=== PATIENT | male | born 1950 | race African-American/Black ===

== ENCOUNTER 2018-05-09 23:18 | Emergency (ER) | payer OTHER ==
[~2018-05-09] VITALS: Ht 172.7 cm; Wt 82.0 kg
[2018-05-10] MEDS ORDERED: TETANUS, DIPHTHERIA, PERTUSSIS VAC/PF 0.5ML (>7YR OLD) IM ONE (00:15)
[2018-05-10 01:06] LABS: CHLORIDE 110 mEq/L (98-107)
[2018-05-10 01:16] LABS: EOSINOPHILS % 1.6 % (0.0-5.0); HEMATOCRIT. 40.5 % (42.0-52.0); LYMPHOCYTES % 14.9 % (20.0-50.0); MEAN CORPUSCULAR HEMOGLOBIN 24.6 pg (28.0-32.0); MONOCYTES % 6.2 % (2.0-8.0); NEUTROPHILS % 76.3 % (40.0-76.0); PLATELET 240 x1000/uL (130-400); RED BLOOD CELL COUNT 5.26 mill/uL (4.7-6.1); RED CELL DISTRIBUTION WIDTH 19.4 % (11.6-14.6)
[2018-05-10] MEDS ORDERED: FUROSEMIDE 100MG/10ML VIAL IVP ONE (02:00)
[2018-05-10 03:36] VITALS: BP 141/103
== END 2018-05-10 03:45 | disposition home or self-care (01) ==
LOC: ER 23:18
DX: I11.0 Hypertensive heart disease with heart failure (principal); I50.9 Heart failure, unspecified; Z91.14 Patient's other noncompliance with medication regimen; R55 Syncope and collapse; S00.81XA Abrasion of other part of head, initial encounter; W01.198A Fall on same level from slipping, tripping and stumbling with subsequent striking against other object, initial encounter; Y93.89 Activity, other specified; Y92.012 Bathroom of single-family (private) house as the place of occurrence of the external cause; F10.20 Alcohol dependence, uncomplicated; Y90.9 Presence of alcohol in blood, level not specified; F12.90 Cannabis use, unspecified, uncomplicated; F17.210 Nicotine dependence, cigarettes, uncomplicated
CPT/HCPCS: 36415; 70450; 71045; 80053; 82962; 85025; 90471; 90715; 93005; 96374; 99285; J1940

== ENCOUNTER 2018-06-01 22:25 | Inpatient (IN) | payer MEDICARE, OTHER ==
[~2018-06-01] VITALS: Ht 175.3 cm; Wt 88.5 kg
[2018-06-02 00:51] LABS: BASOPHILS % 0.9 % (0.0-2.0); EOSINOPHILS % 0.8 % (0.0-5.0); HEMATOCRIT. 40.2 % (42.0-52.0); HEMOGLOBIN. 12.6 g/dL (14.0-18.0); LYMPHOCYTES % 18.2 % (20.0-50.0); MEAN CORPUSCULAR HEMOGLOBIN 24.2 pg (28.0-32.0); MEAN CORPUSCULAR VOLUME 77.2 fL (80.0-94.0); MEAN PLATELET VOLUME 8.4 fl (7.4-10.4); MONOCYTES % 10.9 % (2.0-8.0); NEUTROPHILS % 69.2 % (40.0-76.0); PLATELET 227 x1000/uL (130-400); RED BLOOD CELL COUNT 5.21 mill/uL (4.7-6.1); RED CELL DISTRIBUTION WIDTH 18.7 % (11.6-14.6)
[2018-06-02 01:01] LABS: BG BASE EXCESS -2.6 mmol/L (-2.0-2.0); BG CARBOXYHEMOGLOBIN 1.2 % (0.5-1.5); BG DEOXYHEMOGLOBIN 2.7 % (0.0-5.0); BG FRACTION INSPIRED OXYGEN 28; BG HCO3 ACT 20.3 mmol/L (22.0-26.0); BG METHEMOGLOBIN 0.3 % (0.0-1.5); BG OXYGEN SATURATION 97.3 % (92.0-98.5); BG OXYHEMOGLOBIN 95.8 % (94.0-97.0); BG PCO2 29.7 mmHg (35.0-45.0); BG PH 7.452 (7.350-7.450); BG PO2 97.6 mmHg (75.0-100.0); BG SAMPLE SITE LEFT BRACHIAL; BG TOTAL HEMOGLOBIN 12.6 g/dL (12.0-18.0); BG VENT MODE NASAL CANNULA
[2018-06-02 01:02] LABS: CHLORIDE 112 mEq/L (98-107)
[2018-06-02 01:06] LABS: ETHANOL BLOOD < 10 mg/dL
[2018-06-02] MEDS ORDERED: FUROSEMIDE 20MG/2ML VIAL IVP ONE (02:00)
[2018-06-02] MEDS ORDERED: SODIUM POLYSTYRENE SULFONATE 15 G/60 ML BOT PO ONE (02:00)
[2018-06-02 06:11] LABS: CLARITY URINE CLEAR (CLEAR); COLOR URINE YELLOW (YELLOW); KETONES URINE NEGATIVE (NEGATIVE); LEUKOCYTE ESTERASE URINE NEGATIVE (NEGATIVE); NITRITE URINE NEGATIVE (NEGATIVE); OCCULT BLOOD URINE NEGATIVE (NEGATIVE); PH URINE 5.5 (4.5-8.0); PROTEIN URINE NEGATIVE (NEGATIVE); SPECIFIC GRAVITY URINE 1.011 (1.005-1.030); UROBILINOGEN URINE 0.2 E.U./dL (0.2-1.0)
[2018-06-02 06:41] LABS: *AMPHETAMINES SCREEN URINE NEGATIVE (NEGATIVE); *BARBITURATES SCREEN URINE NEGATIVE (NEGATIVE)
[2018-06-02 06:42] LABS: *BENZODIAZEPINES SCREEN URINE NEGATIVE (NEGATIVE); *COCAINE SCREEN URINE NEGATIVE (NEGATIVE); CANNABINOID URINE SCREEN NEGATIVE (NEGATIVE); METHADONE URINE SCREEN NEGATIVE (NEGATIVE); OPIATES URINE SCREEN NEGATIVE (NEGATIVE); PHENCYCLIDINE URINE SCREEN NEGATIVE (NEGATIVE)
[2018-06-02] MEDS ORDERED: FUROSEMIDE 20MG/2ML VIAL IV NR (06:50)
[2018-06-02] MEDS ORDERED: ACETAMINOPHEN 650MG SUPP PR PRN (08:30)
[2018-06-02 09:19] LABS: BASOPHILS % 0.7 % (0.0-2.0); EOSINOPHILS % 1.1 % (0.0-5.0); HEMATOCRIT. 41.2 % (42.0-52.0); LYMPHOCYTES % 15.6 % (20.0-50.0); MEAN CORPUSCULAR HEMOGLOBIN 24.3 pg (28.0-32.0); MEAN CORPUSCULAR VOLUME 77.2 fL (80.0-94.0); MONOCYTES % 9.4 % (2.0-8.0); NEUTROPHILS % 73.2 % (40.0-76.0); PLATELET 215 x1000/uL (130-400); RED BLOOD CELL COUNT 5.34 mill/uL (4.7-6.1); RED CELL DISTRIBUTION WIDTH 18.2 % (11.6-14.6)
[2018-06-02 09:25] LABS: CHLORIDE 109 mEq/L (98-107)
[2018-06-02 11:00] VITALS: BP 136/103
[2018-06-02] MEDS ORDERED: ALBUMIN HUMAN 12.5GM/50ML (25%) IV NR (11:30)
[2018-06-02] MEDS: SPIRONOLACTONE 25MG TABLET PO SCH (14:00)
[2018-06-02] MEDS ORDERED: SPIRONOLACTONE 50MG TABLET PO SCH (14:00)
[2018-06-02 14:03] LABS: INR 1.2; PROTHROMBIN TIME 12.5 sec (9.1-11.1)
[2018-06-02] MEDS ORDERED: LIDOCAINE HCL 1% 20ML VIAL (Pyxis) INJ ONE (14:57)
[2018-06-02] MEDS ORDERED: SODIUM BICARBONATE 4% (2.4MEQ) 5ML VIAL IV ONE (14:57)
[2018-06-02 15:30] VITALS: BP 135/112
[2018-06-02] MEDS ORDERED: ONDANSETRON HCL 4MG TABLET PO PRN (16:45)
[2018-06-02] MEDS: FUROSEMIDE 40MG/4ML VIAL IV SCH (16:56)
[2018-06-02] MEDS: NICOTINE 14MG PATCH TD SCH (16:56)
[2018-06-02 18:00] VITALS: BP 129/93
[2018-06-02] MEDS: LOSARTAN POTASSIUM 50 MG TABLET PO SCH (18:05)
[2018-06-02] MEDS: HYDRALAZINE HCL 10MG TABLET PO SCH ×2 (18:06→21:20)
[2018-06-02 20:00] VITALS: BP 108/80
[2018-06-02] MEDS ORDERED: HYDROCODONE/ACETAMINOPHEN 5/325MG TABLET PO PRN (20:30)
[2018-06-02] MEDS: CARVEDILOL 3.125 MG TABLET PO SCH (21:20)
[2018-06-03] MEDS: HYDRALAZINE HCL 10MG TABLET PO SCH ×3 (06:07→21:19)
[2018-06-03] MEDS: FUROSEMIDE 40MG/4ML VIAL IV SCH ×3 (06:07→18:16)
[2018-06-03 07:45] VITALS: BP 128/73
[2018-06-03] MEDS: NICOTINE 14MG PATCH TD SCH (08:44)
[2018-06-03] MEDS: SPIRONOLACTONE 25MG TABLET PO SCH (08:44)
[2018-06-03] MEDS: LOSARTAN POTASSIUM 50 MG TABLET PO SCH (08:44)
[2018-06-03] MEDS: CARVEDILOL 3.125 MG TABLET PO SCH ×2 (08:44→21:00)
[2018-06-03] MEDS ORDERED: FUROSEMIDE 40MG/4ML VIAL IV SCH (09:00)
[2018-06-03 12:00] VITALS: BP 135/52
[2018-06-03 16:00] VITALS: BP 142/52
[2018-06-03] MEDS: LACTULOSE 20G/30ML UDC PO SCH (18:16)
[2018-06-03 18:22] LABS: BASOPHILS % 0.5 % (0.0-2.0); EOSINOPHILS % 1.4 % (0.0-5.0); HEMATOCRIT. 38.4 % (42.0-52.0); HEMOGLOBIN. 11.9 g/dL (14.0-18.0); LYMPHOCYTES % 11.9 % (20.0-50.0); MEAN CORPUSCULAR HEMOGLOBIN 23.8 pg (28.0-32.0); MEAN CORPUSCULAR VOLUME 76.8 fL (80.0-94.0); MEAN PLATELET VOLUME 8.2 fl (7.4-10.4); MONOCYTES % 8.6 % (2.0-8.0); NEUTROPHILS % 77.6 % (40.0-76.0); PLATELET 210 x1000/uL (130-400); RED CELL DISTRIBUTION WIDTH 18.2 % (11.6-14.6)
[2018-06-03 18:39] LABS: CHLORIDE 105 mEq/L (98-107)
[2018-06-03 19:31] LABS: HEPATITIS B SURFACE ANTIGEN NEGATIVE
[2018-06-03 20:00] VITALS: BP 131/71
[2018-06-03 20:01] LABS: HEPATITIS A AB IGM NEGATIVE (NEGATIVE)
[2018-06-04] VITALS: BP 111/78
[2018-06-04] MEDS: IPRATROPIUM/ALBUTEROL 0.5-3(2.5)MG/3ML NEB HHN PRN ×4 (00:20→21:15)
[2018-06-04] MEDS: BUDESONIDE 0.5MG/2ML NEB HHN SCH ×5 (00:20→21:01)
[2018-06-04 04:00] VITALS: BP 121/81
[2018-06-04] MEDS: HYDRALAZINE HCL 10MG TABLET PO SCH ×2 (05:14→21:45)
[2018-06-04 08:00] VITALS: BP 100/60
[2018-06-04 08:15] LABS: CHLORIDE 107 mEq/L (98-107)
[2018-06-04] MEDS: SPIRONOLACTONE 25MG TABLET PO SCH (09:00)
[2018-06-04] MEDS: LOSARTAN POTASSIUM 50 MG TABLET PO SCH (09:00)
[2018-06-04] MEDS: CARVEDILOL 3.125 MG TABLET PO SCH ×2 (09:00→21:00)
[2018-06-04] MEDS: LACTULOSE 20G/30ML UDC PO SCH (09:45)
[2018-06-04] MEDS: NICOTINE 14MG PATCH TD SCH (09:47)
[2018-06-04 11:40] LABS: BASOPHILS % 0.7 % (0.0-2.0); EOSINOPHILS % 1.3 % (0.0-5.0); HEMATOCRIT. 36.1 % (42.0-52.0); HEMOGLOBIN. 11.5 g/dL (14.0-18.0); LYMPHOCYTES % 12.5 % (20.0-50.0); MEAN CORPUSCULAR HEMOGLOBIN 24.4 pg (28.0-32.0); MEAN CORPUSCULAR VOLUME 76.5 fL (80.0-94.0); MONOCYTES % 14.7 % (2.0-8.0); NEUTROPHILS % 70.8 % (40.0-76.0); PLATELET 192 x1000/uL (130-400); RED BLOOD CELL COUNT 4.72 mill/uL (4.7-6.1); RED CELL DISTRIBUTION WIDTH 18.1 % (11.6-14.6)
[2018-06-04 12:00] VITALS: BP 100/62
[2018-06-04 16:00] VITALS: BP 102/74
[2018-06-04 20:00] VITALS: BP 97/62
[2018-06-05] VITALS: BP 92/66
[2018-06-05 04:00] VITALS: BP 97/73
[2018-06-05] MEDS: HYDRALAZINE HCL 10MG TABLET PO SCH ×3 (06:00→21:43)
[2018-06-05 08:00] VITALS: BP 100/64
[2018-06-05] MEDS: IPRATROPIUM/ALBUTEROL 0.5-3(2.5)MG/3ML NEB HHN PRN ×2 (08:54→15:22)
[2018-06-05] MEDS: BUDESONIDE 0.5MG/2ML NEB HHN SCH (08:54)
[2018-06-05] MEDS: CARVEDILOL 3.125 MG TABLET PO SCH ×2 (09:00→21:00)
[2018-06-05] MEDS: LOSARTAN POTASSIUM 50 MG TABLET PO SCH (09:00)
[2018-06-05] MEDS: LACTULOSE 20G/30ML UDC PO SCH (09:06)
[2018-06-05] MEDS: SPIRONOLACTONE 25MG TABLET PO SCH (09:07)
[2018-06-05] MEDS: FUROSEMIDE 40MG/4ML VIAL IV SCH ×2 (09:07→17:38)
[2018-06-05] MEDS: NICOTINE 14MG PATCH TD SCH (09:09)
[2018-06-05 12:00] VITALS: BP 100/61
[2018-06-05 16:00] VITALS: BP 100/74
[2018-06-05 16:37] LABS: CHLORIDE 106 mEq/L (98-107)
[2018-06-05 20:00] VITALS: BP 101/66
[2018-06-06] VITALS: BP 103/66
[2018-06-06 04:00] VITALS: BP 112/88
[2018-06-06] MEDS: HYDRALAZINE HCL 10MG TABLET PO SCH ×2 (06:30→13:05)
[2018-06-06] MEDS: FUROSEMIDE 40MG/4ML VIAL IV SCH (06:31)
[2018-06-06 08:04] VITALS: BP 99/73
[2018-06-06 08:06] LABS: HEMOGLOBIN. 11.8 g/dL (14.0-18.0); MEAN CORPUSCULAR HEMOGLOBIN 24.3 pg (28.0-32.0); MEAN CORPUSCULAR VOLUME 76.2 fL (80.0-94.0); MEAN PLATELET VOLUME 8.2 fl (7.4-10.4); PLATELET 196 x1000/uL (130-400); RED BLOOD CELL COUNT 4.86 mill/uL (4.7-6.1); RED CELL DISTRIBUTION WIDTH 17.9 % (11.6-14.6)
[2018-06-06] MEDS: SPIRONOLACTONE 25MG TABLET PO SCH (08:26)
[2018-06-06] MEDS: LOSARTAN POTASSIUM 50 MG TABLET PO SCH (08:26)
[2018-06-06] MEDS: LACTULOSE 20G/30ML UDC PO SCH (08:26)
[2018-06-06] MEDS: CARVEDILOL 3.125 MG TABLET PO SCH (08:26)
[2018-06-06] MEDS: NICOTINE 14MG PATCH TD SCH (08:26)
[2018-06-06 08:38] LABS: CHLORIDE 102 mEq/L (98-107)
[2018-06-06 11:27] VITALS: BP 95/62
[2018-06-06 12:00] VITALS: BP 104/78
[2018-06-06 15:58] LABS: PLATELET ESTIMATE NORMAL
[2018-06-06 16:18] VITALS: BP 95/62
[2018-06-06] MEDS ORDERED: FUROSEMIDE 20MG/2ML VIAL IV SCH (17:15)
== END 2018-06-06 16:32 | disposition home or self-care (01) | DRG 432 ==
LOC: ER 22:25 → EDBEDREQ 06-02 02:57 → EDBEDREQTM 06-02 02:57 → EDBEDREQSVC 06-02 02:57 → 8WST 06-02 03:12 → ENRESERV 06-02 08:31
PROVIDERS: ADMIT Emergency Medicine; ATTEND Emergency Medicine
PROC: 0W9G3ZZ Drainage of Peritoneal Cavity, Percutaneous Approach (ICD-10-PCS; principal; 2018-06-02)
DX: K70.31 Alcoholic cirrhosis of liver with ascites (principal); I50.23 Acute on chronic systolic (congestive) heart failure; J96.00 Acute respiratory failure, unspecified whether with hypoxia or hypercapnia; K76.6 Portal hypertension; E44.0 Moderate protein-calorie malnutrition; E87.2 Acidosis; I42.0 Dilated cardiomyopathy; E72.20 Disorder of urea cycle metabolism, unspecified; N50.89 Other specified disorders of the male genital organs; I11.0 Hypertensive heart disease with heart failure; E87.5 Hyperkalemia; J43.9 Emphysema, unspecified; I07.1 Rheumatic tricuspid insufficiency; D64.9 Anemia, unspecified; F17.210 Nicotine dependence, cigarettes, uncomplicated; K59.00 Constipation, unspecified; Z91.19 Patient's noncompliance with other medical treatment and regimen; Z99.81 Dependence on supplemental oxygen; Z68.28 Body mass index [BMI] 28.0-28.9, adult
CPT/HCPCS: 36415; 36600; 49083; 71045; 74176; 76700; 80048; 80305; 82040; 82140; 82375; 82805; 83605; 83615; 83735; 83880; 84484; 86705; 86709; 86803; 87340; 93005; 93306; 93970; 96374; 99285; G0482; J1940; J3490; J7620; J7626; P9047